=== PATIENT | male | born 2000 | race Caucasian/White ===

== ENCOUNTER 2024-06-02 11:29 | Emergency (ER) | payer OTHER, SELFPAY ==
[2024-06-02 11:36] VITALS: BP 144/107
--- NOTE | 2024-06-02 12:16 | ED.GENMED ---
History of Present Illness
General
Chief Complaint: Crisis Evaluation
Source: patient
Time Seen by Provider: 06/02/24 12:11
History of Present Illness
History of Present Illness:
Patient presents to the emergency room requesting inpatient management for suicidal ideations. Patient denies doing anything actually hurt himself today. He has attempted suicide in the past by overdosing on his prescriptions. Patient states he
has been compliant with his psychiatric medications. He denies any fever chills cough or any other medical complaints at this time.
Past History
Past History
ED Past Medical History: Psychiatric and Other (ADHD, Asperger's)
Social History
Tobacco: Non-smoker
Alcohol: None
Personal: Single
Living: with family
Employment: Student
Family History
Family History: Other (Noncontributory)
Phy Exam
Physical Exam
Physical Exam:
General: Awake, Alert, Oriented X3. No acute distress., Soft-spoken, flat affect
Vitals: unremarkable
Head: Atraumatic
Eyes: Pupils equal, EOMI
Throat: Airway intact, no exudates
Neck: Trachea midline
Neuro: Nonfocal
Skin: Warm, dry, no rash
Extremities: pulses equal b/l, no edema
Course
Orders/Labs/Results
Orders:
Orders
06/02/24 11:31
1:1 Observation - Suicide/ Violent Behavior As Directed
Crisis Consult Urgent
Reason for Consult: SI
06/02/24 13:45
Acetaminophen Urgent
Alcohol Urgent
COVID-19 Antigen Urgent
Source: Nasal Swab
Complete Blood Count/No Diff Urgent
Comprehensive Metabolic Panel Urgent
06/02/24 13:49
Fentanyl, Urine Urgent
Urine Drug Abuse Screen Urgent
Date Specimen was Collected: 06/02/24
Time Specimen was Collected: 13:45
06/02/24 18:42
Nicotine [Nicoderm Transdermal] 21 mg TRANSDERM ONCE ONE
Abnormal Lab Results
06/02/24 06/02/24
13:45 13:49
WBC 13.4 H 10^3/uL
(4.8-10.8)
Plt Count 428 H 10^3/uL
(130-400)
BUN 5 L mg/dl
(9-20)
Glucose 132 H mg/dl
(70-99)
Albumin 5.3 H g/dl
(3.5-5.0)
Acetaminophen < 10 L ug/ml
(10-30)
Ur Amphetamines Screen Positive H
(Negative)
U Methamphetamines Scrn Positive H
(Negative)
U Marijuana (THC) Screen Positive H
(Negative)
06/02/24 13:45
06/02/24 13:45
Vital Signs
Initial and Last Documented VS:
Initial Vital Signs
Temp Pulse Resp BP Pulse Ox
98.2 F 140 20 144/107 96
06/02/24 11:36 06/02/24 11:36 06/02/24 11:36 06/02/24 11:36 06/02/24 11:36
Last Documented Vital Signs
Temp Pulse Resp BP Pulse Ox
98.3 F 122 18 171/95 98
06/02/24 18:45 06/02/24 18:45 06/02/24 18:45 06/02/24 18:45 06/02/24 18:45
MDM/Problems Addressed
Differential Diagnosis Includes:
suicidal ideations, depression
MDM/Problems Addressed:
Patient presents with suicidal ideations. He denies doing a thing or himself. He denies any medical complaints. Defer psychiatric management to crisis
*Critical Care Note
Total Time (30-74mins, 75-104mins- exclusive of procedures): Not Applicable
ED Attending Note
-
Portions of this chart may have been created with voice recognition software.� Occasional wrong word or��sound alike� substitutions may have occurred due to the inherent limitations of voice recognition software.
Discharge Plan
Departure
Patient Disposition: Psych Facility
Condition: Fair
Discharge Problem:
Depression with suicidal ideation
Prescriptions:
No Action
cetirizine 10 MG tablet
10 mg PO HS
risperidone 2 MG tablet
2 mg PO HS
montelukast 10 MG tablet
10 mg PO HS
lamotrigine 100 MG tablet
200 mg PO HS
atomoxetine [Strattera] 100 MG capsule
100 mg PO HS
melatonin 5 MG tablet
5 mg PO HS
guanfacine 4 MG tablet extended release 24 hr
4 mg PO HS
ranitidine HCl 75 MG tablet
75 mg PO BID
albuterol sulfate 1 PUFF HFA aerosol inhaler
1 puff inhalation R [id number] PRN (Reason: sob)
multivitamin with folic acid [Tab-A-Shannan] 1 TABLET tablet
1 tab PO HS
escitalopram oxalate 10 MG tablet
10 mg PO HS
Patient Comments:
04/07/17: Patient takes with Escitalopram 5mg. Total 15mg a day.
escitalopram oxalate 5 MG tablet
5 mg PO HS
Patient Comments:
04/07/17: Patient takes with Escitalopram 10mg. Total 15mg a day.
Referrals:
UNKNOWN - PT NOT,INTERVIEWE [Family Provider] -
Interventions
Interventions:
*Risk Screen - Suicide Last Done: 06/02/24 13:04
*General Assessment Last Done: 06/02/24 13:04
*Neglect/Abuse Screening Last Done: 06/02/24 13:04
ED- Fall Risk Assessment Last Done: 06/02/24 13:04
*ED COVID-19 Vaccine History Last Done: 06/02/24 13:04
*Nursing Disposition Last Done: 06/02/24 19:50
ED-Psychological Assessment Last Done: 06/02/24 13:04
Discharge Date and Time
Discharge Date/Time: 06/02/24 19:51
Print Language: ARMENIAN
--- NOTE | 2024-06-02 12:36 | EDRN ---
Pt moved to -2 at this time and changed into paper scrubs.
[2024-06-02 13:04] VITALS: BMI 31.9
--- NOTE | 2024-06-02 13:08 | EDRN ---
Pt states he is having depression, has substance abuse (crystal meth and marajuana + last used just prior to arrival), and is seeking in pt admission.
[2024-06-02 14:19] LABS: Hematocrit 47.8 % (39.0-52.0); Hemoglobin 16.4 g/dL (13.0-18.0); Mean Corp Hgb Conc. 34.3 g/dL (33.0-37.0); Mean Corpuscular Hgb 30.1 pg (27.0-31.0); Mean Corpuscular Volume 87.7 fL (80.0-94.0); Mean Platelet Volume 8.5 fL (7.4-10.4); Platelet Count 428 10^3/uL (130-400); Red Blood Cell Count 5.45 10^6/uL (4.70-6.10); Red Cell Dist. Width 12.5 % (11.5-14.5); White Blood Cell Count 13.4 10^3/uL (4.8-10.8)
[2024-06-02 14:32] LABS: ALT (SGPT) 16 U/L (0-50); AST (SGOT) 21 U/L (17-59); Acetaminophen < 10 ug/ml (10-30); Albumin 5.3 g/dl (3.5-5.0); Alcohol None Detected; Alkaline Phosphatase 68 U/L (38-126); Blood Urea Nitrogen 5 mg/dl (9-20); Carbon Dioxide 25 mmol/L (22-30); Chloride 99 mmol/L (98-107); Estimated Creatinine Clearance > 125 ml/min; Glucose 132 mg/dl (70-99); Sodium 139 mmol/L (135-145); Total Bilirubin 0.4 mg/dl (0.2-1.3); Total Protein 7.7 g/dl (6.3-8.2); eGFR > 60.00
[2024-06-02 14:39] LABS: COVID-19 Antigen Negative (Negative)
[2024-06-02 14:43] LABS: Marijuana Positive (Negative)
[2024-06-02 14:44] LABS: Amphetamines Positive (Negative); Barbiturates Negative (Negative); Benzodiazepines Negative (Negative); Buprenorphine Negative (Negative); Cocaine Negative (Negative); Methadone Negative (Negative); Methamphetamines Positive (Negative); Opiates Negative (Negative); Phencyclidine Negative (Negative); Tricyclic Antidepressants Negative (Negative)
[2024-06-02 14:56] LABS: Fentanyl, Urine Negative (Negative)
--- NOTE | 2024-06-02 15:15 | EDRN ---
Crisis in to see pt.
--- NOTE | 2024-06-02 15:27 | EDRN ---
Labs drawn and sent at this time.
[2024-06-02 16:30] VITALS: BP 149/99
[2024-06-02 16:35] VITALS: BP 168/86
--- NOTE | 2024-06-02 16:52 | EDRN ---
Vital signs taken at 16:30 and 16:35. Pt's HR was 100-126 and BP's 149/99 and then 168/86. Pt stating he is tired of waiting and just wishes to go home. Pt states slight feeling of withdrawal. Pt talking to father on phone when this RN left room. Pt
is awaiting placement at his request for inpt psyciatric care. Pt is resting on stretcher w/ lights out and remains calm and cooperative at this time.
--- NOTE | 2024-06-02 18:18 | EDRN ---
Pt has been asked on arrival, at 16:00 and at 18:00 about a diet order and pt has declined. Pt was also asked about fluids and declined. Pt has been drinking from his bottle that he brought in only.
[2024-06-02 18:45] VITALS: BP 171/95
[2024-06-02] MEDS: NICODERM TRANSDERMAL 21 MG TRANSDERM (18:50)
== END 2024-06-02 19:51 ==
LOC: EMR 11:29
PROVIDERS: EMERGENCY PHYSICIAN Emergency Medicine
DX: F32.A Depression, unspecified (principal); R45.851 Suicidal ideations; F90.9 Attention-deficit hyperactivity disorder, unspecified type; F84.5 Asperger's syndrome; Z91.51 Personal history of suicidal behavior
CPT/HCPCS: 99283; 80053; 80143; 80306; 80307; 82077; 85027; 87811

== ENCOUNTER 2025-02-18 13:58 | Emergency (ER) | payer OTHER, SELFPAY ==
[2025-02-18 14:09] VITALS: BP 156/106
--- NOTE | 2025-02-18 20:53 | ED.GENMED ---
History of Present Illness
General
Chief Complaint: Crisis Evaluation
Source: patient
Exam Limitations: none
Time Seen by Provider: 02/18/25 14:20
Nursing documentation reviewed up to this point in time: agreed with
History of Present Illness
History of Present Illness:
Patient is a 24-year-old male who presents to the emergency department for crisis evaluation. Patient states that over the past month he has been struggling with worsening depressive thoughts. Today, his girlfriend of six months, broke up with him,
which caused him to spiral. He reports thoughts of not wanting to be here anymore.
He states he has had progressive worsening in his mental health over the past month however this was the �icing on the cake�.
He has no current suicidal plan or intentions to ask on these thoughts. He denies any homicidal ideation. No visual/auditory hallucinations.
Patient lives at home with his parents and feels safe in his current living environment.
He does have a legnthy history of mental health trouble as well as addiction. 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
He does follow with a therapist and his next appointment is on Wednesday. He is on multiple psychiatric medications as prescribed by his PCP and has been taking as directed. No other medical concerns today.
Past History
Past History
ED Past Medical History: Psychiatric and Other (ADHD, Asperger's)
Social History
Tobacco: Non-smoker
Alcohol: None
Personal: Single
Living: with family
Employment: Student
Family History
Family History: Other (Noncontributory)
Review of Systems
Review of Systems
Allergies reviewed?: Yes
All Other Systems: ROS reviewed and negative except as documented in HPI and ROS
Phy Exam
Physical Exam
Physical Exam:
Vitals: Hypertensive and tachycardic on arrival, normalized by my assessment. Afebrile
General: Patient is well appearing, no acute distress
Skin: Warm and dry, no rashes or lesions
Head: Normocephalic, atraumatic
Throat: Protecting airway
Neck: Normal ROM, no cervical spine tenderness
Cardiac: Regular rate and rhythm. No murmurs.
Pulm: No apparent respiratory distress. Lungs clear bilaterally.
Abdomen: Nondistended
Extremities: No evidence of cyanosis or edema
Neuro: Grossly intact
Psychiatric: Somewhat dull affect. Cooperative with exam. No SI or HI. Not responsing to internal stimuli on exam
Course
Orders/Labs/Results
Orders:
Orders
02/18/25 13:59
1:1 Observation - Suicide/ Violent Behavior As Directed
Crisis Consult Urgent
Reason for Consult: +SI, denies plan
Vital Signs
Initial and Last Documented VS:
Initial Vital Signs
Temp Pulse Resp BP Pulse Ox
98.5 F 134 18 156/106 98
02/18/25 14:09 02/18/25 14:09 02/18/25 14:09 02/18/25 14:09 02/18/25 14:09
Last Documented Vital Signs
Temp Pulse Resp BP Pulse Ox
98.5 F 134 18 156/106 98
02/18/25 14:09 02/18/25 14:09 02/18/25 14:09 02/18/25 14:02/18/25 20:54
MDM/Problems Addressed
Differential Diagnosis Includes:
Not limited to: depression, anxiety, suicidal ideations, acute psychosis, etc
MDM/Problems Addressed:
Patient presented to the ED with passive suicidal ideation, triggered by a breakup with his girlfriend earlier today. He denies any active suicidal plan or intent, and there are no thoughts of harming others. No auditory or visual hallucinations
reported. No evidence of psychosis. Vitals stable and physical/mental status exam unremarkable.
Patient is currently engaged in ongoing outpatient mental health care, including regular therapy and medication management through his PCP. He also reports a strong support system, including his parents (with whom he lives) and supportive coworkers.
Based on clinical evaluation and psychiatric risk assessment, patient does not appear to be acutely suicidal or a danger to himself or others at this time. Presentation is consistent with a situational exacerbation of underlying depression,
particularly in response to a recent emotional stressor. He is future-oriented, engaged in care, and demonstrates insight.
Crisis team evaluated the patient and agrees he does not meet criteria for psychiatric admission. Inpatient treatment was discussed, but available beds may require self-pay if insurance does not approve. Given the absence of acute risk and patient's
stability, also considered IOP programs.
IOP options were discussed. Patient is very agreeable to this and expressed comfort and familiarity with prior care at [facility], where he had successful past treatment. He will follow up with them to arrange re-enrollment. Discharge plan
reviewed and patient verbalized understanding.
Patient discharged in stable condition with reassurance, continued outpatient follow-up, and strict return precautions provided, including return to ED for any worsening SI, new safety concerns, or inability to cope.
Chronic conditions affecting care:
Bipolar disorder, anxiety, depression, ADHD
Acute Exacerbation and/or Progression of Chronic Illness:
N/A
*Pulse Oximetry
SaO2: 98
Oxygen Mode of Delivery: Room air
Patient hypoxic: no
*EKG
Interpreted by ED Provider?: NA
*Fitting Room Attendant Interpretation
Rate: Fitting Room Attendant- N/A
*Critical Care Note
Total Time (30-74mins, 75-104mins- exclusive of procedures): Not Applicable
ED Attending Note
-
Portions of this chart may have been created with voice recognition software.� Occasional wrong word or��sound alike� substitutions may have occurred due to the inherent limitations of voice recognition software.
Discharge Plan
Departure
Patient Disposition: Home (Routine Discharge)
Date of Disposition: 02/18/25
Time of Disposition: 15:18
Patient with high blood pressure during this ER visit?: Yes
Condition: Good
Discharge Problem:
Depression, Passive suicidal ideations
Instructions: Depression, Adult (DC), BLOOD PRESSURE
Prescriptions:
No Action
cetirizine 10 MG tablet
10 mg PO HS
risperidone 2 MG tablet
2 mg PO HS
montelukast 10 MG tablet
10 mg PO HS
lamotrigine 100 MG tablet
200 mg PO HS
atomoxetine [Strattera] 100 MG capsule
100 mg PO HS
melatonin 5 MG tablet
5 mg PO HS
guanfacine 4 MG tablet extended release 24 hr
4 mg PO HS
ranitidine HCl 75 MG tablet
75 mg PO BID
albuterol sulfate 1 PUFF HFA aerosol inhaler
1 puff inhalation R [id number] PRN (Reason: sob)
multivitamin with folic acid [Tab-A-Shannan] 1 TABLET tablet
1 tab PO HS
escitalopram oxalate 10 MG tablet
10 mg PO HS
Patient Comments:
04/07/17: Patient takes with Escitalopram 5mg. Total 15mg a day.
escitalopram oxalate 5 MG tablet
5 mg PO HS
Patient Comments:
04/07/17: Patient takes with Escitalopram 10mg. Total 15mg a day.
Referrals:
Shi Sibley CRNP [Family Provider, Family Practice] - Next open appointment
Activity Restrictions/Additional Instructions:
RETURN TO THE EMERGENCY DEPARTMENT WITH ANY THOUGHTS OF HARMING YOURSELF OR OTHERS, NEED FOR DRUG REHAB, OR ANY OTHER SAFETY CONCERNS
- You were provided multiple resources today by our crisis department. It was recommended that you pursue an IOP program. Please contact these programs as soon as possible for placement.
- Continue to take your medications as prescribed
- Follow-up with your primary care for continued medication management. Please also keep your appoint with your therapist this Wednesday for follow-up.
Monitor your symptoms closely and return to the emergency department with any acute worsening/ new symptoms or any other concerns
Interventions
Interventions:
*Risk Screen - Suicide Last Done: 02/18/25 13:59
*General Assessment Last Done: 02/18/25 14:09
*Neglect/Abuse Screening Last Done: 02/18/25 14:09
*ED- Fall Risk Assessment Last Done: 02/18/25 14:09
*ED COVID-19 Vaccine History Last Done: 02/18/25 14:09
*ED Influenza Vaccine History Last Done: 02/18/25 14:09
*Nursing Disposition Last Done: 02/18/25 15:41
ED-Psychological Assessment Last Done: 02/18/25 14:27
Discharge Date and Time
Discharge Date/Time: 02/18/25 15:41
Print Language: SERBIAN
== END 2025-02-18 15:41 | disposition home or self-care (01) ==
LOC: EMR 13:58
PROVIDERS: EMERGENCY PHYSICIAN Emergency Medicine; FAMILY PHYSICIAN Nurse Practitioner Family
DX: R45.851 Suicidal ideations (principal); F31.9 Bipolar disorder, unspecified; F41.9 Anxiety disorder, unspecified; F84.5 Asperger's syndrome
CPT/HCPCS: 99282